=== PATIENT | male | born 1995 | race Caucasian/White ===

== ENCOUNTER 2018-08-04 13:58 | Emergency (ER) | END 2018-08-04 16:46 | disposition home or self-care (01) ==

== ENCOUNTER 2018-12-19 11:08 | Emergency (ER) | payer SELFPAY ==
[~2018-12-19] VITALS: Ht 175.3 cm; Wt 71.3 kg
[~2018-12-19 11:08] MED LIST: CIPR500T4 PO; DICY10CA40 PO
[2018-12-19 11:12] VITALS: Ht 175.3 cm; Wt 71.3 kg
[2018-12-19] MEDS ORDERED: SOD CHLORIDE 0.9% 1,000 ML IV STA (12:29)
[2018-12-19] MEDS ORDERED: ONDANSETRON 4 MG INJ IV STA (12:29)
--- NOTE | 2018-12-19 12:49 | ERD ---
ER Documentation Chief Complaint Chief Complaint ABD PAIN WITH VOMITING/DIARRHEA , ONSET 0600 AM HPI This is a 23-year-old male with a nonsignificant past medical history presents ED with complaints of nausea vomiting and diarrhea since 6 AM this morning. Patient admits to having multiple episodes of nonbilious nonbloody vomiting as well as multiple episodes of nonbloody diarrhea. Patient admits to some abdominal cramping associated with the symptoms. Patient states that he is dehydrated and he does not drink enough fluids throughout the day. Denies dysuria, hematuria, fever, chills, cough, congestion, runny nose, chest pain, shortness breath, trouble breathing and all other symptoms. No known drug allergies. ROS All systems reviewed and are negative except as per history of present illness. Medications Home Meds Active Scripts Ciprofloxacin Hcl* (Ciprofloxacin Hcl*) 500 Mg Tablet, 500 MG PO BID for 7 Days, TAB Prov:MATTHEW MEDINA PA-C 08/04/18 Dicyclomine HCl (Dicyclomine HCl) 10 Mg Capsule, 10 MG PO TID PRN for ABDOMINAL CRAMPING, #20 CAP Prov:MATTHEW MEDINA PA-C 08/04/18 Allergies Allergies: Coded Allergies: No Known Allergy (Unverified , 08/04/18) PMhx/Soc Hx Alcohol Use: No Hx Substance Use: No Hx Tobacco Use: No FmHx Family History: No diabetes Physical Exam Vitals Vital Signs Date Temp Pulse Resp B/P (MAP) Pulse Ox O2 O2 Flow FiO2 Time Delivery Rate 12/19/18 97.9 72 18 124/71 100 11:12 (88) Physical Exam Physical Exam Vitals signs: Reviewed by me. General: Well developed, well nourished, in no acute distress. Patient is awake and alert. Head: Normocephalic, atraumatic. Eyes: Normal conjunctiva, Pupils PERRLA, EOM intact grossly ENT: Pharynx is clear, Moist mucous membranes, external ears, nose and mouth normal Neck: Supple, no masses, lymphadenopathy or JVD Respiratory: Clear to auscultation bilaterally with no wheezing, rhonchi, rales, no distress Cardiovascular: RRR, no murmurs, rubs, or gallops Abdominal: Soft, nondistended, no peritoneal signs, no rigidity, no surgical abdomen, bowel sounds present all 4 quadrants, nontender light deep palpation all 4 quadrants, McBurney's point nontender, no rebound tenderness, Calvert sign negative Neurologic: Alert and oriented, moving all extremities, normal speech, no focal weakness, no cerebellar signs. Normal mentation Skin: warm and dry, No rash Psych: Normal mood Result Diagram: 12/19/18 1245 12/19/18 1245 Results 24 hrs Laboratory Tests Test 12/19/18 12:45 White Blood Count 21.7 10^3/ul Red Blood Count 6.02 10^6/ul Hemoglobin 17.5 g/dl Hematocrit 51.7 % Mean Corpuscular Volume 85.9 fl Mean Corpuscular Hemoglobin 29.1 pg Mean Corpuscular Hemoglobin Concent 33.8 g/dl Red Cell Distribution Width 13.0 % Platelet Count 327 10^3/UL Mean Platelet Volume 10.2 fl Immature Granulocytes % 0.800 % Neutrophils % 90.1 % Lymphocytes % 3.6 % Monocytes % 5.0 % Eosinophils % 0.0 % Basophils % 0.5 % Nucleated Red Blood Cells % 0.0 /100WBC Immature Granulocytes # 0.170 10^3/ul Neutrophils # 19.5 10^3/ul Lymphocytes # 0.8 10^3/ul Monocytes # 1.1 10^3/ul Eosinophils # 0.0 10^3/ul Basophils # 0.1 10^3/ul Nucleated Red Blood Cells # 0.0 10^3/ul Urine Color BRANDO Urine Clarity SLIGHTLY CLOUDY Urine pH 7.0 Urine Specific [place] 1.031 Urine Ketones 2+ mg/dL Urine Nitrite NEGATIVE mg/dL Urine Bilirubin NEGATIVE mg/dL Urine Urobilinogen 1+ mg/dL Urine Leukocyte Esterase NEGATIVE Gerber/ul Urine Microscopic RBC 1 /HPF Urine Microscopic WBC 3 /HPF Urine Bacteria FEW /HPF Urine Mucus MANY /HPF Urine Hemoglobin NEGATIVE mg/dL Urine Glucose NEGATIVE mg/dL Urine Total Protein 1+ mg/dl Sodium Level 141 mmol/L Potassium Level 4.6 mmol/L Chloride Level 100 mmol/L Carbon Dioxide Level 28 mmol/L Anion Gap 13 Blood Urea Nitrogen 16 mg/dl Creatinine 0.94 mg/dl Est Glomerular Filtrat Rate mL/min > 60 mL/min Glucose Level 149 mg/dl Calcium Level 10.8 mg/dl Total Bilirubin 0.9 mg/dl Direct Bilirubin 0.00 mg/dl Indirect Bilirubin 0.9 mg/dl Aspartate Amino Transf (AST/SGOT) 26 IU/L Alanine Aminotransferase (ALT/SGPT) 24 IU/L Alkaline Phosphatase 90 IU/L Total Protein 8.2 g/dl Albumin 5.0 g/dl Globulin 3.20 g/dl Albumin/Globulin Ratio 1.56 Lipase 46 U/L Current Medications Medications Dose Sig/Brain Start Time Status Last (Trade) Ordered Route PRN Stop Time Admin Dose Reason Admin Sodium 1,000 ml @ Q1H STAT 12/19/18 DC 12/19/18 Chloride 1,000 mls/hr IV 12:29 12:52 12/19/18 13:28 Ondansetron 4 mg ONCE STAT 12/19/18 DC 12/19/18 HCl (Zofran IV 12:29 12:52 Inj) 12/19/18 12:30 Procedures/MDM LAB INTERPRETATION: CBC remarkable for an elevated WBC of 21.7, elevated neutrophil percentage 90.1% Chemistry shows no evidence of significant electrolyte abnormalities or renal insufficiency Liver function test shows no evidence of acute biliary or hepatic dysfunction Lipase shows no evidence of acute pancreatitis Urinalysis remarkable for 3 WBC, 1 RBC, few bacteria, no leukocyte esterase and no nitrite, ketones 2+ ER COURSE: The patient was given IV normal saline and Zofran The medication was well tolerated and the patient reports improvement in symptoms. The patient was stable throughout ED course. I kept the patient and/or family informed of laboratory and diagnostic imaging results throughout the emergency room course. The patient was promptly evaluated and a treatment plan was devised based on H&P and other data. This plan was discussed with the patient who agreed and had no further questions or concerns prior to discharge. MEDICAL DECISION MAKING: This is a 23-year-old male presents ED with complaints of nausea vomiting and diarrhea since this morning. Patient does have some abdominal cramping associated with the symptoms. Considered causes of abdominal pain that are not gender-specific (e.g., appendicitis, volvulus, small bowel obstruction, mesenteric adenitis, acute cholecystitis/choledocholithiasis, AAA and other biliary pathology, etc.) as well as male-specific causes (testicular torsion, epididymitis, orchitis, etc.). Patient well-appearing with normal vital signs. Abdomen benign on initial exam and on multiple repeat exams. Laboratory testing is remarkable for an elevatED white blood cell count of 21.7. I discussed with patient the possibility of doing imaging regarding the high WBC and he refuses imaging today. I believe that patient's history, clinical presentation is most consistent with a gastroenteritis. Patient was given Zofran and IV normal saline emergency department and reports feeling much better. Patient has not had any episodes of vomiting in the emergency department. Patient has good skin turgor and has no signs of severe dehydration. Patient given strict return precautions for worsening pain, inability to eat/drink, fevers (temperature over 100.4F), or other concerns. Patient instructed to follow up with his primary doctor and is agreeable; all questions were answered. Repeat abdominal exam in 12 hours. Pt agrees w tx plan and understands strict return precautions. DISPOSITION PLAN: We discussed follow up with the patient's primary care doctor within 24 to 48 hours. Patient counseled regarding my diagnostic impression and care plan. Prior to discharge all questions answered. Pt agrees with treatment plan and understands strict return precautions. Precautionary instructions provided including instructions to return to the ER if not improving or for any worsening or changing symptoms or concerns. SPECIALIST FOLLOW UP RECOMMENDED: None Patient has been advised to follow up with primary care in 1-2 days. Disclaimer: Inadvertent spelling and grammatical errors are likely due to EHR/dictation software use and do not reflect on the overall quality of patient care. Also, please note that the electronic time recorded on this note does not necessarily reflect the actual time of the patient encounter. Departure Diagnosis: Primary Impression: Nausea and vomiting Vomiting type: unspecified Vomiting Intractability: non-intractable Qualified Codes: R11.2 - Nausea with vomiting, unspecified Additional Impressions: Diarrhea Diarrhea type: unspecified type Qualified Codes: R19.7 - Diarrhea, unspecified Abdominal cramping Condition: Stable Patient Instructions: Abdominal Pain, Gastroenteritis, Viral (6Y-Adult), Nausea and Vomiting-Adult, Treating Diarrhea Referrals: [facility] Additional Instructions: Patient advised to return to the ED immediately for new or worsening symptoms. Patient advised to follow up with primary care provider in the next 24-48 hours. Patient verbalized understanding and agrees with treatment plan and course of action. If patient has no primary care they may follow up with one of the community clinics listed on the following page or one of the options listed below [address] [address] or [facility] [id number] [place] [id number] or [facility] [address] [place] [address] REE GRIFFIN PA-C Dec 19, 2018 12:49
[2018-12-19] MEDS ORDERED: ONDA4TAB14 PO (13:57)
[2018-12-19] MEDS ORDERED: DICY10CA40 PO (13:57)
== END 2018-12-19 14:38 | disposition home or self-care (01) ==
LOC: FTE 11:08
DX: R11.2 Nausea with vomiting, unspecified (principal); R19.7 Diarrhea, unspecified; R10.9 Unspecified abdominal pain
CPT/HCPCS: 36415; 80053; 81001; 83690; 85025; 96361; 96374; 99284; J2405; J7030